=== PATIENT | male | born 1945 | race Caucasian/White ===

== ENCOUNTER 2017-11-29 13:34 | Emergency (ER) | payer MEDICARE ==
[~2017-11-29] VITALS: Ht 172.7 cm; Wt 90.9 kg
[~2017-11-29 13:34] MED LIST: ALPR-624 PO; ASPI81TA52 PO; CALC200T; CARV-49 PO; CHOL100062 PO; ESCI20TA29 PO; FENO135C PO; FERR-86 PO; LUTE10TA PO; MAG400T PO; MULT-785 PO; OMEP20CA4 PO; RANI150T12 PO; ROSU20TA PO; SAXA1TBM3 PO; TIOT18CA7 IH; TRAZ-143 PO; VITA15LO2; VITA400T10 PO; VITC500T PO
[2017-11-29 13:49] VITALS: BP 136/82
[2017-11-29 14:49] LABS: CLARITY,URINE CLEAR (Clear); COLOR,URINE YELLOW (Yellow); GLUCOSE, URINE NEGATIVE (Neg); KETONES,URINE NEGATIVE (Neg); LEUKOCYTE ESTERASE ,URINE NEGATIVE (Neg); NITRITES, URINE NEGATIVE (Neg); OCCULT BLOOD,URINE NEGATIVE (Neg); PROTEIN,URINE 100 mg/dl (Neg); UROBILINOGEN,URINE 0.2 E.U/dL (0.2-1.0)
[2017-11-29 14:54] LABS: UA COLLECTION TYPE VOIDED
[2017-11-29 14:55] LABS: BACTERIA,URINE NONE SEEN /HPF (Neg); MUCUS STRANDS NONE SEEN /LPF (Neg); RBC,URINE NONE SEEN /HPF (0-2); SQUAMOUS EPITHELIAL CELL,UR NONE SEEN /LPF (FEW); WBC,URINE 0-4 /HPF (0-4)
[2017-11-29] MEDS ORDERED: HYDROmorphone 1 mg/ml syringe IV PRN (15:20)
[2017-11-29] MEDS ORDERED: ondansetron/PF 4mg/2ml inj IV ONE (15:20)
[2017-11-29] MEDS ORDERED: normal saline 1000ML IV soln IVB ONE (15:20)
[2017-11-29] MEDS ORDERED: ipratropium/albuterol 3ml nebule NEB ONE (16:40)
[2017-11-29 18:09] LABS: BASOPHILS % (AUTO) 0.2 % (0-1); EOSINOPHILS # (AUTO) 0.3 X10'3 (0-0.9); HEMATOCRIT 44.6 % (42.0-52.0); HEMOGLOBIN 14.9 g/dl (14.0-17.9); LYMPHOCYTES # (AUTO) 1.9 X10'3 (1.1-4.8); LYMPHOCYTES % (AUTO) 17.5 % (21-51); MEAN CORPUSCULAR HEMOGLOBIN 29.6 PG (27.0-31.0); MEAN CORPUSCULAR HGB CONC 33.3 % (33.0-36.5); MEAN CORPUSCULAR VOLUME 88.9 FL (78-98); MEAN PLATELET VOLUME 10.3 FL (7.4-10.4); MONOCYTES # (AUTO) 0.7 X10'3 (0-0.9); MONOCYTES % (AUTO) 6.7 % (2-12); NEUTROPHILS % (AUTO) 72.6 % (42-75); PLATELET COUNT 142 X10'3 (140-440); RED BLOOD COUNT 5.02 X10'6 (4.70-6.10); RED CELL DISTRIBUTION WIDTH 14.6 % (11.5-14.5)
[2017-11-29] MEDS ORDERED: ALBU6.7H INH (18:19)
[2017-11-29] MEDS ORDERED: AZIT-63 PO (18:19)
[2017-11-29 18:26] LABS: ALANINE AMINOTRANSFERASE 34 U/L (12-78); ALBUMIN 3.6 G/DL (3.4-5.0); ALBUMIN/GLOBULIN RATIO 0.9 (1.1-1.5); ALKALINE PHOSPHATASE 50 IU/L (46-116); ANION GAP 9 (8-16); ASPARTATE AMINO TRANSFERASE 20 U/L (10-37); BILIRUBIN,TOTAL 0.4 MG/DL (0.1-1.0); BLOOD UREA NITROGEN 18 MG/DL (7-18); BUN/CREATININE RATIO 11.5 (5.4-32.0); CHLORIDE 102 MMOL/L (99-107); CREATININE 1.56 MG/DL (0.60-1.10); GLUCOSE 152 MG/DL (70-104); LIPASE 188 U/L (73-393); POTASSIUM 3.8 MMOL/L (3.5-5.1); SODIUM 138 MMOL/L (135-145); TOTAL CARBON DIOXIDE 26.8 MMOL/L (24-32); TOTAL PROTEIN 7.5 G/DL (6.4-8.2); eGFR 44 ML/MIN
[2017-11-29 18:34] LABS: CALCIUM 7.5 MG/DL (8.5-10.1)
== END 2017-11-29 19:22 | disposition home or self-care (01) ==
LOC: ER 13:35
DX: J40 Bronchitis, not specified as acute or chronic (principal); F17.200 Nicotine dependence, unspecified, uncomplicated; H35.81 Retinal edema; G89.29 Other chronic pain; I48.91 Unspecified atrial fibrillation; E78.00 Pure hypercholesterolemia, unspecified; Z87.442 Personal history of urinary calculi; Z79.82 Long term (current) use of aspirin; Z91.018 Allergy to other foods
CPT/HCPCS: 36415; 71045; 74176; 80053; 81001; 83690; 85025; 93005; 94640; 94760; 96361; 96374; 96375; 99285; 99406; J1170; J2405; J7030